=== PATIENT | female | born 1975 | race Caucasian/White ===

== ENCOUNTER 2019-04-29 00:26 | Emergency (ER) | payer BC ==
[2019-04-29] MEDS ORDERED: Sodium Chloride 0.9% 1,000 ML IV ONE (00:30)
[2019-04-29] MEDS ORDERED: Ketorolac 15 MG/ML SDV IVPUSH ONE ×2 (00:30→02:52)
[2019-04-29] MEDS ORDERED: Ondansetron 4 MG/2 ML SDV IVPUSH ONE (00:30)
[2019-04-29 01:20] LABS: CHLORIDE,CL 106 mmol/L (98-107); SODIUM,NA 140 mmol/L (136-145)
[2019-04-29 01:21] LABS: ANION GAP 13.8 mmol/L (10-20)
--- NOTE | 2019-04-29 01:41 | EDM.PDOC ---
ED HPI GENERAL MEDICAL PROBLEM - General Chief Complaint: Abdominal Pain Stated Complaint: Abdominal Pain Time Seen by Provider: 04/29/19 00:28 Source of Information: Reports: Patient History Limitations: Reports: No Limitations - History of Present Illness INITIAL COMMENTS - FREE TEXT/NARRATIVE: Patient comes into the emergency department with right upper quadrant abdominal discomfort. Patient states that it started about 7 hours prior to arrival to the emergency room. She states that is been a constant discomfort. She rates it a 7/10. She states that she does have a history of gastritis and acid reflux at times but not diagnosed or treated. However she feels that this is worse than that discomfort. She describes it as a sharp shooting sensation that is constant that does radiate to her right back region. She denies any chest pain, shortness of breath, diaphoresis, urinary concerns or peripheral edema. She does state that she is nauseated with the abdominal discomfort. She did take a Pepto-Bismol earlier this evening however she states that she vomited right after that. Patient denies taking any other medications to help alleviate any of the discomfort. Patient is up-to-date with immunizations and vaccines. States that she has not had any recent illnesses or injuries. Onset: Sudden Severity: Severe Improves with: Reports: None Worsens with: Reports: None Context: Reports: Other Associated Symptoms: Reports: No Other Symptoms - Related Data Allergies Allergy/AdvReac Type Severity Reaction Status Date / Time No Known Allergies Allergy Verified 04/29/19 01:27 Home Meds: Home Meds Ethinyl Estradiol/Drospirenone [Jojo 28 Tablet] 1 each PO DAILY 04/29/19 [History ] Levothyroxine 1 tab PO DAILY 04/29/19 [History] Levothyroxine 1 tab PO DAILY 04/29/19 [History] ED ROS GENERAL - Review of Systems Review Of Systems: See Below Constitutional: Reports: No Symptoms HEENT: Reports: No Symptoms Respiratory: Reports: No Symptoms Cardiovascular: Reports: No Symptoms Endocrine: Reports: No Symptoms : Reports: No Symptoms Musculoskeletal: Reports: No Symptoms Skin: Reports: No Symptoms Neurological: Reports: No Symptoms Psychiatric: Reports: No Symptoms Hematologic/Lymphatic: Reports: No Symptoms ED EXAM, GENERAL - Physical Exam Exam: See Below Exam Limited By: No Limitations General Appearance: Alert, WD/WN, No Apparent Distress Head: Atraumatic, Normocephalic Respiratory/Chest: No Respiratory Distress, Lungs Clear, Normal Breath Sounds, No Accessory Muscle Use, Chest Non-Tender Cardiovascular: Normal Peripheral Pulses, Regular Rate, Rhythm, No Edema GI/Abdominal: Normal Bowel Sounds, Soft, No Organomegaly, No Distention, Pelvis Stable, Tender Back Exam: Normal Inspection, Decreased Range of Motion Extremities: Normal Inspection, Normal Range of Motion, Non-Tender, No Pedal Edema, Normal Capillary Refill Neurological: Alert, Oriented, CN II-XII Intact, Normal Gait Psychiatric: Normal Affect, Normal Mood Skin Exam: Warm, Dry, Intact Course - Orders/Labs/Meds Orders: Active Orders 24 hr Category Date Time Status EKG Documentation Completion [RC] STAT Care 04/29/19 00:31 Active Abdomen Pelvis wo Cont [CT] Stat Exams 04/29/19 00:32 Ordered Sodium Chloride 0.9% [Normal Saline] 1,000 ml Med 04/29/19 00:30 Active IV ONETIME Medication Orders Sodium Chloride (Normal Saline) 1,000 mls @ 999 mls/hr IV ONETIME ONE Stop: 04/29/19 01:30 Last Admin: 04/29/19 00:52 Dose: 999 mls/hr Labs: Laboratory Tests 04/29/19 04/29/19 Range/Units 00:50 00:50 WBC 8.8 (4.0-10.0) x10^3/uL RBC 4.61 (4.00-5.50) x10^6/uL Hgb 14.0 (12.0-16.0) g/dL Hct 41.2 (33.0-47.0) % MCV 89.4 (78.0-93.0) fL MCH 30.4 (26.0-32.0) pg MCHC 34.0 (32.0-36.0) g/dL RDW Coeff of Sandra 12.0 (10.0-15.0) % Plt Count 244 (130-400) x10^3/uL Neut % (Auto) 77.0 (50.0-80.0) % Lymph % (Auto) 15.5 L (25.0-50.0) % [place] % (Auto) 6.8 (2.0-11.0) % Eos % (Auto) 0.6 (0.0-4.0) % Baso % (Auto) 0.1 L (0.2-1.2) % Sodium 140 (136-145) mmol/L Potassium 3.8 (3.5-5.1) mmol/L Chloride 106 (98-107) mmol/L Carbon Dioxide 24 (21-32) mmol/L Anion Gap 13.8 (10-20) mmol/L BUN 13 (7-18) mg/dL Creatinine 0.9 (0.55-1.02) mg/dL Est Cr Clr Drug Dosing TNP Estimated GFR (MDRD) > 60 Glucose 120 H (74-106) mg/dL Calcium 8.9 (8.5-10.1) mg/dL Corrected Calcium 9.78 (8.5-10.1) mg/dL Total Bilirubin 0.5 (0.2-1.0) mg/dL AST 20 (15-37) U/L ALT 45 (14-59) U/L Alkaline Phosphatase 78 (46-116) U/L Creatine Kinase 57 (26-192) U/L Troponin I < 0.017 (<=0.056) ng/mL Total Protein 7.1 (6.4-8.2) g/dL Albumin 2.9 L (3.4-5.0) g/dL Globulin 4.2 Albumin/Globulin Ratio 0.69 Amylase 43 (25-115) U/L Lipase 104 (73-393) U/L Meds: Medications Generic Name Dose Route Start Last Admin Trade Name Freq PRN Reason Stop Dose Admin Sodium Chloride 1,000 mls @ 999 mls/hr 04/29/19 00:30 04/29/19 00:52 Normal Saline IV 04/29/19 01:30 999 mls/hr ONETIME ONE Administration Discontinued Medications Generic Name Dose Route Start Last Admin Trade Name Freq PRN Reason Stop Dose Admin Ketorolac Tromethamine 15 mg 04/29/19 00:30 04/29/19 00:57 Toradol IVPUSH 04/29/19 00:31 15 mg ONETIME ONE Administration Ondansetron HCl 4 mg 04/29/19 00:30 04/29/19 00:54 Zofran IVPUSH 04/29/19 00:31 4 mg ONETIME ONE Administration - Re-Assessments/Exams Free Text/Narrative Re-Assessment/Exam: 04/29/19 02:56 VSS. pt is resting pain is a 1-2 at time of discharge. Assessment findings negative on repeat exam Departure - Departure Time of Disposition: 03:00 Disposition: Home, Self-Care 01 Condition: Good Clinical Impression: Cholecystitis, Nausea, Hepatosplenomegaly Cholelithiasis Qualifiers: Cholelithiasis location: gallbladder Cholecystitis presence: with cholecystitis Cholecystitis acuity: acute Biliary obstruction: without biliary obstruction Qualified Code(s): K80.00 - Calculus of gallbladder with acute cholecystitis without obstruction Abdominal pain Qualifiers: Abdominal location: right upper quadrant Qualified Code(s): R10.11 - Right upper quadrant pain - Discharge Information *PRESCRIPTION DRUG MONITORING PROGRAM REVIEWED*: Not Applicable *COPY OF PRESCRIPTION DRUG MONITORING REPORT IN PATIENT TOPHER: Not Applicable Instructions: Cholelithiasis, Gallbladder Eating Plan, Pain Medicine Instructions, [id number], Cholecystitis, [id number], Ketorolac tablets, Ondansetron tablets Additional Instructions: 1. rest 2. Follow the gall bladder eating plan provided in discharge 3. Can take OTC medications as needed for pain or discomfort 4. Follow up by calling Dr. Ponce (transplant and general surgeon) at [phone]. And request the next available opening for surgical consultation for removal of gallbladder. His office to call is [phone] scan was sent to [facility] and they have access to viewing it 6. Labs completed today were negative 7. Activity and diet as tolerated 8. Return if symptoms return or progress 9. Call with any questions or concerns - Problem List Review Problem List Initiated/Reviewed/Updated: Yes - My Orders Last 24 Hours: My Active Orders 04/29/19 00:30 Sodium Chloride 0.9% [Normal Saline] 1,000 ml IV ONETIME 04/29/19 00:31 EKG Documentation Completion [RC] STAT 04/29/19 00:32 Abdomen Pelvis wo Cont [CT] Stat - Assessment/Plan Last 24 Hours: My Active Orders 04/29/19 00:30 Sodium Chloride 0.9% [Normal Saline] 1,000 ml IV ONETIME 04/29/19 00:31 EKG Documentation Completion [RC] STAT 04/29/19 00:32 Abdomen Pelvis wo Cont [CT] Stat Assessment:: 1. RUQ pain 2. nausea 3. Cholelithiasis 4. Cholecystitis Plan: 1. Labs completed in the ER. Results reviewed with the patient 2. IV initiated in the emergency department 3. Zofran IV given for nausea 4. Toradol given for pain and discomfort 5. GI cocktail given to help alleviate any indigestion 6. EKG completed in the emergency department. Results reviewed with patient 7. CT of the abdomen and pelvis completed emergency department. Results reviewed with patient 8. Contact made with [facility] on-call physician Dr. Bustos who feels that the patient does not warrant emergent transfer for surgical intervention. He advises that the patient can be discharged home and contact the surgeon's clinic in the a.m. or be admitted observation. Did discuss this with the patient and she would like to go home and rest. Patient is advised on the risks of going home. Patient is also aware and will return if the symptoms progress or worsen. 9. Patient is given information regarding contact information for [facility]. 10. Toradol was also given prior to patient's discharge 11. Take home packet of Zofran was provided for the patient 12. Education provided regarding activity, diet, [id number] medication modalities, and follow-up care was provided 13. All questions and concerns were addressed prior to discharge
[2019-04-29] MEDS ORDERED: Iopamidol 612 MG/ML 100 ML Bottle IVPUSH ONE (02:03)
[2019-04-29] MEDS ORDERED: Take Home: Ondansetron 4 MG Tab.DIS, 2 Tab Pack PO ONE (02:54)
--- NOTE | 2019-04-29 07:43 | CT ---
[id number] CT/CT Abdomen Pelvis W IV EXAM: CT Abdomen Pelvis W IV CLINICAL DATA: RIGHT UPPER QUADRANT PAIN COMPARISON: NO PREVIOUS SIMILAR EXAM IS AVAILABLE. FINDINGS: There are gallstones The gallbladder is distended There is edema of the gallbladder wall The liver is moderately enlarged The spleen is moderately enlarged The appendix is normal The pelvis shows no mass or adenopathy The adrenals, aorta, kidneys, pancreas are unremarkable IMPRESSION: CHOLECYSTOLITHIASIS PROBABLE CHOLECYSTITIS Justus Nava MD 04/29/19 0742 Thank you for allowing us to participate in the care of your patient.
== END 2019-04-29 03:08 | disposition home or self-care (01) ==
LOC: SUPCPDRO 00:26 → VM.ED 00:26
DX: K80.00 Calculus of gallbladder with acute cholecystitis without obstruction (principal); R16.2 Hepatomegaly with splenomegaly, not elsewhere classified; Z79.899 Other long term (current) drug therapy
CPT/HCPCS: 74177; 80053; 82150; 82550; 83690; 84484; 85025; 93005; 96361; 96374; 96375; 96376; 99284-25; A9270-GY; J1885; J2405; J7030; Q9967